=== PATIENT | female | born 1980 | race Caucasian/White ===

== ENCOUNTER 2017-10-25 09:49 | Emergency (ER) | payer OTHER ==
[~2017-10-25] VITALS: Ht 167.6 cm; Wt 63.5 kg
[2017-10-25] MEDS ORDERED: HYDROCODONE/APAP 5-325MG TABLET PO ONE (11:00)
[2017-10-25] MEDS ORDERED: HYDROCODONE/APAP 5-325MG TABLET ONE (11:09)
[2017-10-25 12:07] LABS: *BILIRUBIN,URIN NEGATIVE (NEGATIVE); *BLOOD, URINE Trace-intact (NEGATIVE); *CLARITY,URINE CLEAR (CLEAR); *COLOR,URINE YELLOW (YELLOW); *KETONES,URINE NEGATIVE (NEGATIVE); *PROTEIN,URINE NEGATIVE (NEGATIVE); *UROBILINOGEN,URINE 0.2 E.U./dl (NORMAL); LEUKOCYTE ESTERASE ,URINE NEGATIVE (NEGATIVE); NITRITE, URINE NEGATIVE (NEGATIVE); PH,URINE 5.5 (5.0-8.0); UGLUCOSE NEGATIVE (NEGATIVE)
[2017-10-25 12:23] LABS: WBC,URINE 0-3 /HPF (0-3)
[2017-10-25 12:24] LABS: MUCUS,URINE FEW /LPF (0-FEW)
[2017-10-25 12:28] LABS: SQUAMOUS EPITHELIAL CELL,UR MODERATE /HPF (NONE SEEN)
[2017-10-25 12:30] LABS: *URINE HCG, QUAL NEGATIVE (NEGATIVE); BACTERIA,URINE FEW /HPF (NONE SEEN); RBC,URINE 0-3 /HPF (0-3)
--- NOTE | 2017-10-25 12:43 | NUR ---
Patient discharged to home in stable conditon with family. Written and verbal after care instructions given. Patient verbalizes understanding of instructions. Stressed follow up with pmd or return to ER for worsening s/s.
== END 2017-10-25 12:44 | disposition home or self-care (01) ==
LOC: ER 09:49
DX: M54.30 Sciatica, unspecified side (principal)
CPT/HCPCS: 81001; 84703; 87086; 99284; A4663